=== PATIENT | male | born 1945 | race Caucasian/White ===

== ENCOUNTER 2025-01-31 09:23 | Outpatient (AMB) | payer MEDICARE, OTHER, SELFPAY ==
--- NOTE | 2025-01-31 09:24 | A.OFFVIS_ITS ---
Intake Visit Reasons: renal lesion Intake Note: Patient is present for RENAL LESION Urology Medication:NONE Antibiotic Allergy:NONE Blood Thinner:NONE Application Dba Required: No Allergies No Known Allergies Allergy (Verified 01/31/25 09:25) Results AMB Urinalysis, Automated UA Leukoctes 0 Paul/uL Last Edit by JACQUE Stovall on 01/31/25 09:41 UA Nitrite Negative Last Edit by JACQUE Stovall on 01/31/25 09:41 UA Urobilinogen 0.2 mg/dL Last Edit by JACQUE Stovall on 01/31/25 09:4 1 UA Protein 15 mg/dL Last Edit by JACQUE Stovall on 01/31/25 09:41 UA pH 6.0 Last Edit by JACQUE Stovall on 01/31/25 09:41 UA Blood 0 Timothy/uL Last Edit by JACQUE Stovall on 01/31/25 09:41 UA Specific [place] 1.025 Last Edit by JACQUE Stovall on 01/31/25 09: 41 UA Ketone Positive Last Edit by JACQUE Stovall on 01/31/25 09:41 UA Bilirubin 0 mg/dL Last Edit by JACQUE Stovall on 01/31/25 09:41 UA Glucose 0 mg/dL Last Edit by JACQUE Stovall on 01/31/25 09:41 Results Reviewed Results Reviewed: Laboratory Last Values Urine pH (Auto) 6.0 01/31/25 09:40 Specific [place] (Auto) 1.025 01/31/25 09:40 Urine Protein (Auto) 15 mg/dL 01/31/25 09:40 Glucose (UA)(Auto) 0 mg/dL 01/31/25 09:40 Urine Ketones (Auto) Positive 01/31/25 09:40 Urine Blood (Auto) 0 Timothy/uL 01/31/25 09:40 Urine Nitrite (Auto) Negative 01/31/25 09:40 Urine Bilirubin (Auto) 0 mg/dL 01/31/25 09:40 Urine Urobilinogen (Auto) 0.2 mg/dL 01/31/25 09:40 Leukocyte Esterase (Auto) 0 Paul/uL 01/31/25 09:40 Assessment & Plan Assessment & Plan Orders: Orders AMB Urinalysis Automated Today Z13.9 - Encounter for screening, unspecified Coding
--- OUTSIDE RECORDS SUMMARY | 2025-01-31 10:03 | XMS_ITS | Data Portability ---
Author Organization [facility], , [facility], OFFICE Address [address] [place] [address] Care Team Providers Care Home Mission Worker Name Role Phone BESSY WELLINGTON OTHER MELISSA MATHEWS OTHER [facility] OTHER LEVI MONTANO Primary Care Provider JESÚS SLAUGHTER Urologist Assessment Encounter Date Assessment Date Assessment LastModified by Organization Details LastModified Time 12/01/2024 12/01/2024 We reviewed your chronic medical conditions and updated your plan for management. Please review instructions below. We have discussed your personal goals and discussed how to reach your goals. Please reach out to us via the Portal or phone if you have questions about your chronic conditions or if you or your caregivers require assistance in meeting your goals. Please visit our website Worlds for more patient resources. As part of your care plan, we will help coordinate your ongoing medical needs, arrange for durable medical equipment, renew prescriptions and necessary prior authorizations, facilitate getting referrals and collaborating with specialist, referrals for VNA services. [email or web address] Not available 11/28/2024 15:43:28 Plan of Treatment Reminders Order Date Submit Date Provider Last Modified By Organization Details Last Modified Time Details Appointments LAB Follow- Up 2024 08:10A M [facility] Lab Not available Not available Not available Follow Up, 15 2024 10:15A M Diana Scott PA-C Not available Not available Not available Compreh ensive Eye Exam, 20 Min 2025 10:40A M Merline Bourgeois, OD Not available Not available Not available Lab CBC 2024 [facility], [address] [place] [address], [id number], 12/14/2024 16:54:30 CMP, serum or plasma 2024 025 [facility], [address] [place] [address], [id number], 12/15/2024 14:55:15 lipase, serum or plasma 2024 025 [facility], [address] [place] [address], [id number], 12/15/2024 14:55:16 erythro cyte sedimen tation rate by westerg edu method 2024 025 [facility], [address] [place] [address], [id number], 12/15/2024 09:50:06 C-react kim protein , quantit ative, serum or plasma 2024 [facility], [address] [place] [address], [id number], 12/15/2024 14:55:17 Referral None recorde d. Procedures None recorde d. Surgeries None recorde d. Imaging MRI, kidney, w/wo contras t - renal protoco l, pls compare with April [address]24 CT scan with recomme ndation s; please note abd exam today LUQ with non tender firm mass approx 3 cm, difficu lt to ascerta in due to body habitus , hx of intermi ttent chronic LUQ pain x 1 year. Hx of T2DM. 2024 025 [facility] [address], [place], [address], 01/16/2025 12:42:46 XR, abdomen - LUQ random pain x 1 year, I palpate d a hard mass approx 2 cm non tender pls verify? rib? 2024 025 [facility] ([facility]), [address], [place], [address], 01/11/2025 17:59:22 Medication Orders metform in ER 500 mg tablet, extende d release 24 hr 2024 025 [email or web address] [facility], [facility], [place], [address], 01/25/2025 10:27:43 Ozempic 0.25 mg or 0.5 mg (2 mg/3 mL) subcuta neous pen injecto r 2024 025 [facility], [facility], [address], 12/14/2024 14:35:20 metform in ER 1,000 mg tablet, extende d release 24hr (osmoti c) 2024 025 [email or web address] [facility], [facility], [place], [address], 12/01/2024 15:27:58 Patient TargetsNo targets recorded. Patient Instructions Encounter Date Encounter Id Patient Instructions Last Modified By Organization Details Last Modified Time 12/14/2024 [id number] -Nonfasting labwork today -Go down to the ozempic 0.5mg weekly -Keep taking the metformin at the 500mg for now -Follow-up in 2 weeks with LS or TR -Ask your insurance if they pay for a continuous glucose monitor (CGM) for patients on the meds that you're taking (and ask which one) Not available 12/14/2024 15:22:03 01/25/2025 [id number] -Check with pharmacist, I believe you can use two of the 0.5mg ozempic doses together to make 1mg and that is okay -Take ozempic 1mg weekly -Reduce the metformin back to 500mg twice daily (can cut the short acting in half for now, use that up, but when you call for a new script, let US know, don't go through the pharmacy) - the goal is for changing to ER to avoid the diarrhea and nausea Not available 01/25/2025 10:30:27 Reason for Referral None Reported. Results Created Date Observation Date Name Description Value Unit Range Abnormal Flag Note LastModifiedBy Organization Detail LastModifiedTime 11/24/19 25 11/24/2024 HGB A1C hemoglobin A1C 7.7 % 4.8-6. 0 high Goal: <7% in Patie nts with Diabe tommy An A1c betwe en 5.7-6 .4% is ident ified as pre-d iabet es and sugge sts risk for progr essio n to diabe tommy Two a1c value s of 6.5% or highe r is consi stent with a diagn osis of diabe tommy but may need furth er confi rmati on Not Available [address], [address], 11/24/2024 15:39:43 11/24/19 25 11/24/2024 HGB A1C estimated average glucose 174.3 mg/dL Not Available [address], [address], 11/24/2024 15:39:43 11/24/19 25 11/24/2024 BASIC METAB OLIC PANEL glucose 138 mg/dL 70-100 high Not Available [address], [address], 11/24/2024 16:05:35 11/24/19 25 11/24/2024 BASIC METAB OLIC PANEL BUN 14 mg/dL 7-18 Not Available [address], [address], 11/24/2024 16:05:35 11/24/19 25 11/24/2024 BASIC METAB OLIC PANEL creatinine 1.0 mg/dL 0.8-1. 3 Not Available [address], [address], 11/24/2024 16:05:35 11/24/19 25 11/24/2024 BASIC METAB OLIC PANEL B/C 14.0 ratio Not Available [address], [address], 11/24/2024 16:05:35 11/24/19 25 11/24/2024 BASIC METAB OLIC PANEL GFR >=60ML /MIN mL/mi n normal >=60m L/min - Arabella l or midly reduc ed <60mL /min- Decre ased kidne y funct ion <15mL /min - Kidne y failu re [facility] calcu lates estim ated Glome rular Filtr ation Rate (eGFR ) using the Chron ic Kidne y Disea se Epide miolo gy Colla borat ion (CKD- EPI) Equat ion (Mariel leong et. al 2020) as recom hallie d by the Natio nal Kidne y Found ation . eGFR is based on age, serum creat inine , and sex. CKD-E PI does not calcu late eGFR by race, does not apply to child edu (age <18 years ), and shoul d not be used in pregn stephanie. Not Available [address], [address], 11/24/2024 16:05:35 11/24/19 25 11/24/2024 BASIC METAB OLIC PANEL sodium 140 mmol/ L 136-14 5 Not Available [address], [address], 11/24/2024 16:05:35 11/24/19 25 11/24/2024 BASIC METAB OLIC PANEL potassium 4.6 mmol/ L 3.5-5. 1 Not Available [address], [address], 11/24/2024 16:05:35 11/24/19 25 11/24/2024 BASIC METAB OLIC PANEL chloride 104 mmol/ L 96-107 Not Available [address], [address], 11/24/2024 16:05:35 11/24/19 25 11/24/2024 BASIC METAB OLIC PANEL anion gap 8.4 5.0-15 .0 Not Available [address], [address], 11/24/2024 16:05:35 11/24/19 25 11/24/2024 BASIC METAB OLIC PANEL CO2 28 mmol/ L 21-32 Not Available [address], [address], 11/24/2024 16:05:35 11/24/19 25 11/24/2024 BASIC METAB OLIC PANEL calcium 8.8 mg/dL 8.5-10 .3 Not Available [address], [address], 11/24/2024 16:05:35 12/15/19 25 12/14/2024 CBC WBC 7.17 K/? ? ?L 4.23-9 .07 Not Available [address], [address], 12/14/2024 16:54:30 12/15/19 25 12/14/2024 CBC RBC 4.82 M/? ? ?L 4.63-6 .08 Not Available [address], [address], 12/14/2024 16:54:30 12/15/19 25 12/14/2024 CBC HGB 14.5 g/dL 13.7-1 7.5 Not Available [address], [address], 12/14/2024 16:54:30 12/15/19 25 12/14/2024 CBC HCT 43.4 % 40.1-5 1.0 Not Available [address], [address], 12/14/2024 16:54:30 12/15/19 25 12/14/2024 CBC MCV 90.0 fL 79.0-9 2.2 Not Available [address], [address], 12/14/2024 16:54:30 12/15/19 25 12/14/2024 CBC MCH 30.1 pg 25.7-3 2.2 Not Available [address], [address], 12/14/2024 16:54:30 12/15/19 25 12/14/2024 CBC MCHC 33.4 g/dL 32.3-3 6.5 Not Available [address], [address], 12/14/2024 16:54:30 12/15/19 25 12/14/2024 CBC plt 241 K/? ? ?L 163-33 7 Not Available [address], [address], 12/14/2024 16:54:30 12/15/19 25 12/14/2024 CBC MPV 9.2 fL 9.4-12 .4 low Not Available [address], [address], 12/14/2024 16:54:30 12/15/19 25 12/14/2024 CBC neut% 65.9 % 34.0-6 7.9 Not Available [address], [address], 12/14/2024 16:54:30 12/15/19 25 12/14/2024 CBC neut# 4.72 1.78-5 .38 Not Available [address], [address], 12/14/2024 16:54:30 12/15/19 25 12/14/2024 CBC lymph % 23.3 % 21.8-5 3.1 Not Available [address], [address], 12/14/2024 16:54:30 12/15/19 25 12/14/2024 CBC lymph # 1.67 K/? ? ?L 1.32-3 .57 Not Available [address], [address], 12/14/2024 16:54:30 12/15/19 25 12/14/2024 CBC mono% 8.6 % 5.3-12 .2 Not Available [address], [address], 12/14/2024 16:54:30 12/15/19 25 12/14/2024 CBC mono# 0.62 0.30-0 .82 Not Available [address], [address], 12/14/2024 16:54:30 12/15/19 25 12/14/2024 CBC eo% 1.5 % 0.8-7. 0 Not Available [address], [address], 12/14/2024 16:54:30 12/15/19 25 12/14/2024 CBC eo# 0.11 0.04-0 .54 Not Available [address], [address], 12/14/2024 16:54:30 12/15/19 25 12/14/2024 CBC baso% 0.4 % 0.2-1. 2 Not Available [address], [address], 12/14/2024 16:54:30 12/15/19 25 12/14/2024 CBC baso# 0.03 0.00-0 .08 Not Available [address], [address], 12/14/2024 16:54:30 12/15/19 25 12/14/2024 CBC RDW-CV 12.1 % 11.6-1 4.4 Not Available [address], [address], 12/14/2024 16:54:30 12/15/19 25 12/14/2024 CBC Ig% 0.300 % 0.000- 1.500 Ig % >0.5 Indic ates possi ble Left Shift Not Available [address], [address], 12/14/2024 16:54:30 12/15/19 25 12/14/2024 CBC Ig# 0.020 0.000- 0.093 Not Available [address], [address], 12/14/2024 16:54:30 12/15/19 25 12/14/2024 CBC NRBC% 0.0 % 0.0-0. 2 Not Available [address], [address], 12/14/2024 16:54:30 12/15/19 25 12/14/2024 CBC NRBC# 0.000 0.000- 0.012 Not Available [address], [address], 12/14/2024 16:54:30 12/15/19 25 12/15/2024 ESR sed rate 5.0 0.0-20 .0 Not Available [address], [address], 12/15/2024 09:50:06 12/15/19 25 12/15/2024 COMP. METAB OLIC PANEL glucose 162 mg/dL 70-100 high Not Available [address], [address], 12/15/2024 14:55:15 12/15/19 25 12/15/2024 COMP. METAB OLIC PANEL BUN 18 mg/dL 7-18 Not Available [address], [address], 12/15/2024 14:55:15 12/15/19 25 12/15/2024 COMP. METAB OLIC PANEL creatinine 1.0 mg/dL 0.8-1. 3 Not Available [address], [address], 12/15/2024 14:55:15 12/15/19 25 12/15/2024 COMP. METAB OLIC PANEL B/C 18.0 ratio Not Available [address], [address], 12/15/2024 14:55:15 12/15/19 25 12/15/2024 COMP. METAB OLIC PANEL GFR >=60ML /MIN mL/mi n normal >=60m L/min - Arabella l or midly reduc ed <60mL /min- Decre ased kidne y funct ion <15mL /min - Kidne y failu re [facility] calcu lates estim ated Glome rular Filtr ation Rate (eGFR ) using the Chron ic Kidne y Disea se Epide miolo gy Colla borat ion (CKD- EPI) Equat ion (Mariel r et. al 2020) as recom hallie d by the Natio nal Kidne y Found ation . eGFR is based on age, serum creat inine , and sex. CKD-E PI does not calcu late eGFR by race, does not apply to child edu (age <18 years ), and shoul d not be used in pregn stephanie. Not Available [address], [address], 12/15/2024 14:55:15 12/15/19 25 12/15/2024 COMP. METAB OLIC PANEL sodium 140 mmol/ L 136-14 5 Not Available [address], [address], 12/15/2024 14:55:15 12/15/19 25 12/15/2024 COMP. METAB OLIC PANEL potassium 4.2 mmol/ L 3.5-5. 1 Not Available [address], [address], 12/15/2024 14:55:15 12/15/19 25 12/15/2024 COMP. METAB OLIC PANEL chloride 101 mmol/ L 96-107 Not Available [address], [address], 12/15/2024 14:55:15 12/15/19 25 12/15/2024 COMP. METAB OLIC PANEL anion gap 13.9 5.0-15 .0 Not Available [address], [address], 12/15/2024 14:55:15 12/15/19 25 12/15/2024 COMP. METAB OLIC PANEL CO2 25 mmol/ L 21-32 Not Available [address], [address], 12/15/2024 14:55:15 12/15/19 25 12/15/2024 COMP. METAB OLIC PANEL calcium 9.4 mg/dL 8.5-10 .3 Not Available [address], [address], 12/15/2024 14:55:15 12/15/19 25 12/15/2024 COMP. METAB OLIC PANEL total protein 7.9 g/dL 6.4-8. 2 Not Available [address], [address], 12/15/2024 14:55:15 12/15/19 25 12/15/2024 COMP. METAB OLIC PANEL albumin 4.3 g/dL 3.4-5. 0 Not Available [address], [address], 12/15/2024 14:55:15 12/15/19 25 12/15/2024 COMP. METAB OLIC PANEL globulin 3.6 g/dL Not Available [address], [address], 12/15/2024 14:55:15 12/15/19 25 12/15/2024 COMP. METAB OLIC PANEL A/G 1.2 ratio 0.8-2. 0 Not Available [address], [address], 12/15/2024 14:55:15 12/15/19 25 12/15/2024 COMP. METAB OLIC PANEL total bilirubin 0.50 mg/dL 0.00-1 .00 Not Available [address], [address], 12/15/2024 14:55:15 12/15/19 25 12/15/2024 COMP. METAB OLIC PANEL AST 20 U/L 0-37 Not Available [address], [address], 12/15/2024 14:55:15 12/15/19 25 12/15/2024 COMP. METAB OLIC PANEL ALT 51 U/L 6-63 Not Available [address], [address], 12/15/2024 14:55:15 12/15/19 25 12/15/2024 COMP. METAB OLIC PANEL alk. phos. 117 U/L 50-136 Not Available [address], [address], 12/15/2024 14:55:15 12/15/19 25 12/15/2024 LIPAS E lipase 26 U/L 16-77 Not Available [address], [address], 12/15/2024 14:55:16 12/15/19 25 12/15/2024 C-SUSAN CTIVE PROTE IN (RCRP ) C-reactive protein (rcrp) 0.8 mg/dL 0.5-9. 0 Not Available [address], [address], 12/15/2024 14:55:17 01/12/20 25 01/11/2025 XR, abdom en CLINIC AL HISTOR Y: Left upper quadra nt abdomi nal pain for 1 year. 2 cm palpab le lump. TECHNI QUE: Supine view and uprigh t view of the abdome n obtain ed. COMPAR [place]: None. FINDIN GS: The intest inal gas patter n is normal , with no signs of ileus or obstru ction. No unusua l masses or calcif icatio ns are seen. The viscer al contou rs are normal ly outlin ed. There is no eviden ce of free air or fluid in the perito luis alberto cavity or retrop eriton eum. The bony struct ures are intact . There is an unrema rkable amount of stool. IMPRES JANETT: No acute abdomi nal pathol ogy. No suspic ious abnorm alitie s seen in the left upper abdome n. Consid er a follow -up ultras ound to assess the lump. Readin g Physic sonal: Carmen Escobedo ms juan fzivana [facility] (Imaging) [address], [place], [address], 01/12/2025 18:07:15 01/24/20 25 01/22/2025 MRI, abdom en, w/wo contr ast No observ ation record ed. [address] [place], [address], 01/23/2025 14:04:35 01/24/20 25 01/22/2025 MRI abdom en (kidn eys) with and witho ut contr ast MRI ABDOME N (YNES YS) WITH AND WITHOU T CONTRA ST Referr ing clinic sonal's provid ed indica tion for this examin ation in Epic: Outsid e Radiol ogy Order Review of the Electr onic Medica l Record reveal s an additi onal histor y of: Renal lesion seen on outsid e CT scan. TECHNI QUE: Multip lanar MR imagin g of the abdome n was perfor med using T1, T2, fat satura jody, and diffus ion weight ed techni ques. Dynami c multip hase imagin g was also perfor med after admini strati on of an intrav enous gadoli nium contra st agent. COMPAR [place]: None FINDIN GS: Lower Chest: No effusi ons. Liver: Multip le scatte red subcen timete r simple hepati c cysts. No solid mass. Patent portal vein. Biliar y: Normal gallbl adder. No biliar y ductal dilata tion. Spleen : No spleno megaly or focal lesion . Pancre as: Small pancre atic head and uncina te cysts measur e up to 5 mm (for instan ce 5:24). No solid mass or pancre atic ductal dilata tion. Adrena l Glands : No nodule s. Kidney s/Uret ers: T2 hypoin tense, precon trast T1 isoint ense 29 x 26 x 29 mm right interp olar renal lesion with mild enhanc ement on delaye d postco ntrast imagin g ([id number] : 81). Simple right upper pole cyst measur es 21 mm. Subcen timete r simple left renal cyst. No hydron ephros is. 2 right renal arteri es. Patent , single right renal vein. Bowel: No dilata tion or wall thicke viktoria. Normal append ix. Perito neum/R etrope ritone um: No masses or fluid. Lymph Nodes: No lympha denopa thy. Vessel s: No abdomi nal aortic aneury sm. Bones/ Soft Tissue s: No focal marrow replac ing lesion s. IMPRES JANETT: 1. 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 No eviden ce of upper abdomi nal metast ases. Urolog ic evalua tion recomm ended. 2. 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 Recomm end follow -up MRI in 2 years to ensure stabil ity. A clinic ally signif icant result was initia jody on 025 1:10 PM, Mess e [place] [id number] 7. Electr onical ly Signed by: Benson carias on 025 1:11 PM Interp reted by: Benson Vanegas MD Signed by: Benson Vanegas MD 5 Final result MRI KIDNEY S WWO ORDER STATES : Patien t states lesion seen on kidney from outsid e CT scan. ( Report in media manage r) Left abdome n pain. [id number] Open Import ant - Epic INTERF BENNETT [id number] ABNORM AL FINDIN GS ON DIAGNO STIC IMAGIN G OF OTHER ABDOMI NAL REGION S,INCL UDING RETROP ERITON EUM R93.5 LEVI GARCIA DARCI N YUE LARSON [facility] [address] [place] [address], [address], 01/24/2025 12:42:31 Result Notes None recorded. Procedures Surgical History Date Name Laterality Status Provider Name and Address Organization Details Recorded Time 4 Juancarlos - Colonoscopy completed Chu Bauer MD [address] [place] [address], [phone], [facility] 06/08/2024 10:40:59 4 Juancarlos - Upper Endoscopy completed Chu Bauer MD [address] [place] [address], [phone], [facility] 06/08/2024 10:38:54 Imaging Results Imaging Date Name Status LastModified by Organiz ation Details LastModified Time 01/11/2025 [facility] [address], [place], [address], 01/12/2025 18:07:15 01/22/2025 MRI, abdomen, w/wo contrast completed [address], [address], 01/23/2025 14:04:35 01/22/2025 MRI abdomen (kidneys) with and without contrast completed [facility] [address] [place] [address], [address], 01/24/2025 12:42:31 Procedure Notes None recorded. Medical Equipment None Reported. Allergies No known drug allergies Medications Name Sig Start Date Stop Date Status Note LastModified by Organization Details LastModified Time drug name is not available active Not Available Not Available No t Available compound drug 01/10 completed Not Available Not Available Not Available cyclobenz aprine 10 mg tablet Take 1 tablet 3 times a day by oral route as needed for spasm. 07/16 completed Not Available Not Available Not Available amoxicill in 500 mg capsule 01/16 completed Not Available Not Available Not Available atorvasta tin 40 mg tablet TAKE 1 TABLET DAILY active Not Available Not Available No t Available atorvasta tin 80 mg tablet TAKE 1 TABLET BY MOUTH EVERY EVENING 08/17 completed 1/2 tab daily Not Available Not Available Not Available doxycycli ne hyclate 100 mg capsule Take 1 capsule twice a day by oral route as directed for 14 days. 06/11 completed Not Available Not Available Not Available Microlet Vaculance Device 2006 active Take 1.00 ea as directed Not Available Not Available Not Available FreeStyle Lancets 28 gauge USE TWICE DAILY DIRECTED FOR MONITORI NG GLUCOSE 11/21 completed pt not using 05/15/24 mp Not Available Not Available Not Available fluoroura cil 5 % topical cream 02/27 completed Not Available Not Available Not Available prochlorp erazine maleate 10 mg tablet active Not Available Not Available Not Available triamcino lone acetonide 0.1 % topical cream APPLY A THIN LAYER TO THE AFFECTED AREA(S) BY TOPICAL ROUTE 2 TIMES PER DAY 06/11 completed Not Available Not Available Not Available lancets USE DIRECTED 3 TIMES ADAY AND NEEDED 10/03 completed Not Available Not Available Not Available citalopra m 20 mg tablet TAKE 1 TABLET ONCE DAILY active Not Available Not Available No t Available hydrocort isone-bennett tic acid 1 %-2 % ear drops INSTILL 2 DROPS INTO AFFECTED EAR(S) BY OTIC ROUTE 4 TIMES PER DAY 05/15 completed 03/16/24 yr pt not using// 03/21/24 yr pt not using Not Available Not Available Not Available ciproflox acin 0.3 % eye drops PUT 1 DROP EVERY 2 HOURS WHILE AWAKE FOR 2 DAYS THEN EVERY 4 HOURS WHILE AWAKE FOR NEXT 5 DAYS active Not Available Not Available No t Available pantopraz ole 40 mg tablet,de layed release 06/05 completed Not Available Not Available Not Available metformin 1,000 mg tablet TAKE 1 TABLET TWICE A DAY 01/25 completed Not Available Not Available Not Available lidocaine 5 % topical patch APPLY 1 PATCH BY TOPICAL ROUTE ONCE DAILY (MAY WEAR UP TO 12HOURS. ) 01/11 completed Not Available Not Available Not Available omeprazol e 20 mg capsule,d elayed release TAKE 1 CAPSULE DAILY active Not Available Not Available No t Available diclofena c sodium 50 mg tablet,de layed release TAKE 1 TABLET BY MOUTH TWICE A DAY WITH MEALS FOR 10 DAYS active Not Available Not Available No t Available ibuprofen 600 mg tablet 01/26 completed PRN Not Available Not Available Not Available albuterol sulfate HFA 90 mcg/actua tion aerosol inhaler Inhale 2 puffs every 4 hours by inhalati on route. 10/03 completed PRN Not Available Not Available Not Available metformin ER 500 mg tablet,ex tended release 24 hr TAKE 2 TABLETS BY MOUTH EVERY DAY 2024 active Not Available Not Available Not Avai lable Adult Low Dose Aspirin 81 mg tablet,de layed release 02/14 completed 1 qd po Not Available Not Available Not Available ciclopiro x 0.77 % topical cream 02/27 completed Not Available Not Available Not Available Alcohol Prep Pads USE TWICE DAILY DIRECTED FOR MONITORI NG GLUCOSE 01/26 completed Not Available Not Available Not Available metformin ER 1,000 mg tablet,ex tended release 24hr (osmotic) Take 1 tablet twice a day by oral route for 90 days. 2024 active Not Available Not Available Not Avai lable BD Ultra-Fin e Mini Pen Needle 31 gauge x 3/16 USE DIRECTED W OZEMPIC active Not Available Not Available No t Available multivita min 2008 active 1 qd po Not Available Not Available Not Avai lable metformin ER 500 mg 24 hr tablet,ex tended release (gastric retention ) Take 2 tablets by mouth every day 08/17 completed Not Available Not Available Not Available peg 3350-elec trolytes 236 gram-22.7 4 gram-6.74 gram-5.86 gram solution active Not Available Not Available Not Available FreeStyle Lite Meter kit USE TWICE DAILY DIRECTED FOR MONITORI NG GLUCOSE 11/21 completed pt not using 05/15/24 mp Not Available Not Available Not Available FreeStyle Lite Strips USE TWICE DAILY DIRECTED FOR MONITORI NG GLUCOSE, DX CODE E11.9 11/21 completed pt not using 8 mp Not Available Not Available Not Available cholecalc iferol (vitamin D3) 1,250 mcg (50,000 unit) capsule Take 1 capsule every week by oral route. 07/16 completed Not Available Not Available Not Available Vitamin D3 50 mcg (2,000 unit) tablet Take 1 tablet every day by oral route for 30 days. 2013 active Not Available Not Available Not Avai labaddy [facility] Custom Lipo-Max cream active Not Available Not Available Not Available OneTouch Delica Lancets 30 gauge 01/16 completed Not Available Not Available Not Available Readi-Cat 2 2 % (w/v) oral suspensio n DRINK 1 BOTTLE 6 HRS PRIOR AND 2ND BOTTLE 1 1/2 HRS PRIOR 05/15 completed Not Available Not Available Not Available Ozempic 0.25 mg or 0.5 mg (2 mg/1.5 mL) subcutane ous pen injector INJECT 0.50 MG EVERY WEEK BY SUBCUTAN EOUS ROUTE FOR 28 DAYS. 01/01 completed Not Available Not Available Not Available COVID-19 test specimen collectio n TEST DIRECTED 05/08 completed Not Available Not Available Not Available Ozempic 1 mg/dose (4 mg/3 mL) subcutane ous pen injector INJECT 1MG SUBCUTAN EOUSLY WEEKLY (EVERY 7 DAYS) active 0.5mg/do se 01/11/25 Not Available Not Available Not Available Ozempic 0.25 mg or 0.5 mg (2 mg/3 mL) subcutane ous pen injector INJECT 0.5MG SUBCUTAN EOUSLYON CE WEEKLY (EVERY 7 DAYS) 12/14 completed Not Available Not Available Not Available Vitals None Recorded Social History Question Answer Notes LastModified by Organization Details LastModified Time Do You Have An Advance Directive? Yes Information not available 08/20/2011 What Is Your Level Of Alcohol Consumption? None Information not available 06/05/2016 What Is Your Level Of Caffeine Consumption? None Information not available 10/02/2013 How Much Tobacco Do You Chew? None [id number] Information not available 08/20/2011 Are You Currently Employed? No Information not available 05/08/2022 What Type Of Diet Are You Following? REGULAR [id number] Information not available 08/20/2011 Which Illicit Or Recreational Drugs Have You Used? None Information not available 08/20/2011 Do You Or Have You Ever Used E-cigarettes Or Vape? Never Used Electronic Cigarettes Information not available 02/28/2020 Education 4 Year College Information not available 09/29/2012 What Is The Highest Grade Or Level Of School You Have Completed Or The Highest Degree You Have Received? 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 No Information not available 05/10/2023 How Many Days In The Past Year Have You Had A Heavy Drinking Consumption (4+ Female, 5+ Male)? 0 [email or web address] Information not available 10/03/2014 Are There Any Guns Present In Your Home? No Information not available 05/10/2023 Do You Use Insect Repellent Routinely? No Information not available 05/08/2022 Live Alone Or With Others? With Others Information not available 08/20/2011 Patient Has Health Care Proxy Signed And In Chart Yes Information not available 07/18/2019 CCM Consent Discussion 02/25/2024 [email or web address] Information not available 03/02/2024 Marital Status Marla 2020 Grandchildren Information not available 01/22/2021 Mosquito Repellent Used Routinely Yes Information not available 01/22/2021 What Was The Date Of Your Most Recent Tobacco Screening? 01/11/2025 [email or web address] Information not available 01/11/2025 How Many Children Do You Have? 3 Information not available 09/29/2012 What Is Your Relationship Status? Information not available 05/08/2022 Do You Use Your Seat Belt Or Car Seat Routinely? Yes Information not available 05/08/2022 Seat Belts Used Routinely Yes Information not available 10/02/2013 Are You Sexually Active? No [id number] Information not available 08/20/2011 Smoke Alarm In Home Yes Information not available 10/02/2013 Do You Have Smoke And Carbon Monoxide Detectors In Your Home? Yes Information not available 05/08/2022 Are You Passively Exposed To Smoke? No In Childhood Information not available 05/08/2022 Do You Or Have You Ever Used Smokeless Tobacco? Never Used Smokeless Tobacco Information not available 02/28/2020 How Much Tobacco Do You Smoke? No Information not available 11/13/2020 What Types Of Sporting Activities Do You Participate In? Painting Information not available 09/29/2012 General Stress Level Low Information not available 09/29/2012 Do You Use Any Illicit Or Recreational Drugs? No Information not available 05/08/2022 Do You Use Sunscreen Routinely? No Stays Out Of The Sun Information not available 05/08/2022 How Many Years Have You Smoked Tobacco? 0 Information not available 11/13/2020 Do You Or Have You Ever Used Any Other Forms Of Tobacco Or Nicotine? No Information not available 05/08/2022 Sex: Unknown Functional Status Question Answer Note LastModified by Organizat ion Details LastModified Time What is your exercise level? Occasional walks daily but slower pace- walks dog Information not available 05/10/2023 Mental Status None recorded. Family History Relationship Description Onset Age of this Age Resolved Age Notes LastModified by Organization Details LastModified Time Father Heart disease 62 [email or web address] Not available 2015 13:09:00 Paternal Uncle Heart disease 48 [email or web address] Not available 2015 13:09:00 Notes:Psychiatric: Family hi story is remarkable for alcoholism. Medical History Condition Response Kidney Stones Y Depression Y Colon Polyps Y Obesity Y Hyperlipidemia Y Chronic Back Pain Y Diabetes Type II Y GERD Y Past Encounters Encounter ID Performer Location Encounter Start Date Encounter Closed Date Diagnosis/Indication Diagnosis SNOMED-CT Code Diagnosis ICD10 Code Diagnosis Note [id number] [facility], OFFICE [address] [facility] [place] [id number] 1 08/16/2000 13:15:00 10/24/2008 02:02:29 [id number] [facility] OFF[facility] [place] [id number] 1 01/17/2001 10:00:00 10/24/2008 02:02:29 [id number] [facility], OFFICE [address] [facility] [place] [id number] 1 07/18/2001 08:45:00 10/24/2008 02:02:29 [id number] [facility], OFFICE [address], [place] [id number] 1 10/20/2001 18:00:00 10/24/2008 02:02:29 [id number] [facility], OFFICE [address], [place] [id number] 1 12/26/2001 13:45:00 10/24/2008 02:02:29 [id number] LAB - [facility] [address], [place] [id number] 1 01/17/2002 08:30:00 10/24/2008 02:02:29 [id number] [facility], OFFICE [address], [place] [id number] 1 01/26/2002 08:30:00 10/24/2008 02:02:29 [id number] LAB - [facility] [address], [place] [id number] 1 02/07/2002 14:00:00 10/24/2008 02:02:29 [id number] LAB - [facility] [address], [place] [id number] 1 03/13/2002 07:15:56 10/24/2008 02:02:29 [id number] [facility], OFFICE [address], [place] [id number] 1 03/20/2002 08:30:00 10/24/2008 02:02:29 [id number] LAB - [facility] [address], [place] [id number] 1 05/08/2002 07:10:21 10/24/2008 02:02:29 [id number] [facility], OFFICE [address], [place] [id number] 1 05/15/2002 08:25:02 10/24/2008 02:02:29 [id number] LAB - [facility] [address], [place] [id number] 1 08/07/2002 07:19:25 10/24/2008 02:02:29 [id number] [facility], OFFICE [address], [place] [id number] 1 08/07/2002 09:11:31 10/24/2008 02:02:29 [id number] [facility], OFFICE [address] [place] [id number] 1 08/14/2002 13:02:02 10/24/2008 02:02:29 [id number] LAB - [facility] [place] [id number] 1 09/11/2002 15:04:25 10/24/2008 02:02:29 [id number] [facility], OFFICE [address] [place] [id number] 1 09/11/2002 13:44:28 10/24/2008 02:02:29 [id number] LAB - [facility] [place] [id number] 1 09/11/2002 00:00:00 10/24/2008 02:02:29 [id number] LAB - [facility] [place] [id number] 1 12/07/2002 06:58:21 10/24/2008 02:02:29 [id number] [facility], OFFICE [address] [place] [id number] 1 02/01/2003 09:30:48 10/24/2008 02:02:29 [id number] LAB - [facility] [place] [id number] 1 04/27/2003 06:56:37 10/24/2008 02:02:29 [id number] [facility], OFFICE [address] [place] [id number] 1 05/07/2003 07:55:11 10/24/2008 02:02:29 [id number] LAB - [facility] [place] [id number] 1 07/27/2003 06:54:22 07/27/2003 14:23:51 [id number] [facility], OFFICE [address] [place] [id number] 1 08/03/2003 08:01:22 08/03/2003 09:40:04 [id number] [facility], OFFICE [address] [place] [id number] 1 08/07/2003 15:57:01 08/08/2003 09:53:56 [id number] LAB - [facility] [place] [id number] 1 10/11/2003 07:00:02 10/12/2003 08:01:40 [id number] [facility], OFFICE [address] [place] [id number] 1 10/18/2003 09:14:50 10/18/2003 14:27:49 [id number] [facility], OFFICE [address], [place] [id number] 1 12/31/2003 09:38:52 12/31/2003 10:58:57 [id number] LAB - [facility] [place] [place] [id number] 1 12/31/2003 10:10:24 01/01/2004 09:29:01 [id number] [facility], OFFICE [address] [place], [place] [id number] 1 01/17/2004 09:18:18 01/17/2004 13:46:36 [id number] [facility], OFFICE [address] [place] [id number] 1 02/08/2004 08:30:27 02/08/2004 09:52:32 [id number] LAB - [facility] [place] [id number] 1 02/21/2004 14:22:11 02/22/2004 07:52:14 [id number] LAB - [facility] [place] [id number] 1 05/05/2004 10:11:38 05/05/2004 10:11:42 [id number] LAB - [facility] [place] [id number] 1 07/14/2004 10:21:08 07/14/2004 10:21:12 [id number] [facility], OFFICE [address] [place] [id number] 1 07/29/2004 09:01:58 07/29/2004 13:01:24 [id number] LAB - [facility] [place] [id number] 1 07/29/2004 09:45:37 07/29/2004 09:45:52 [id number] LAB - [facility] [place] [id number] 1 10/22/2004 08:37:09 10/22/2004 08:37:13 [id number] [facility], OFFICE [address] [place] [id number] 1 10/31/2004 14:18:26 11/01/2004 12:34:46 [id number] [facility], OFFICE [address] [place] [id number] 1 01/07/2005 12:56:38 01/07/2005 14:56:17 [id number] LAB - [facility] [place] [id number] 1 02/19/2005 09:59:48 02/19/2005 09:59:53 [id number] [facility], OFFICE [address] [place] [id number] 1 02/24/2005 08:14:49 02/24/2005 11:43:25 [id number] Eye Care, [facility] [place] [id number] 1 03/16/2005 14:54:46 03/16/2005 16:28:34 [id number] Eye Care, [facility] [place] [id number] 1 04/20/2005 15:07:56 04/20/2005 15:56:26 [id number] LAB - [facility] [place] [id number] 1 05/13/2005 11:48:36 05/13/2005 11:48:41 [id number] [facility], OFFICE [address] [place] [id number] 1 05/25/2005 08:15:49 10/24/2008 02:02:29 [id number] [facility], OFFICE [address] [place] [id number] 1 08/03/2005 14:05:43 10/24/2008 02:02:29 [id number] LAB - [facility] [place] [id number] 1 08/10/2005 08:27:41 08/10/2005 08:27:46 [id number] [facility], OFFICE [address] [place] [id number] 1 08/14/2005 08:01:18 08/14/2005 11:18:33 [id number] LAB - [facility] [place] [id number] 1 08/14/2005 10:15:09 08/14/2005 10:15:33 [id number] LAB - [facility] [place], [place] [id number] 1 11/09/2005 08:53:16 11/09/2005 08:53:22 [id number] [facility], OFFICE [address] [place], [place] [id number] 1 11/13/2005 08:14:29 11/13/2005 13:24:15 [id number] LAB - [facility] [place], [place] [id number] 1 02/19/2006 07:58:23 02/19/2006 07:58:26 [id number] [facility], OFFICE [address] [place], [place] [id number] 1 03/08/2006 10:30:45 03/08/2006 15:00:31 [id number] [facility], [facility] [place], [place] [id number] 1 03/15/2006 08:25:46 10/24/2008 02:02:29 [id number] LAB - [facility] [place], [place] [id number] 1 03/16/2006 14:14:12 03/16/2006 14:14:52 [id number] [facility], OFFICE [address] [place], [place] [id number] 1 04/09/2006 11:01:57 04/09/2006 14:43:08 [id number] [facility] - [facility] [place], [place] [id number] 1 05/25/2006 08:35:40 05/25/2006 08:35:44 [id number] [facility], OFFICE [address], [place] [id number] 1 05/31/2006 08:05:29 05/31/2006 11:38:54 [id number] [facility], OFFICE [address], [place] [id number] 1 07/09/2006 12:52:23 07/09/2006 16:00:07 [id number] [facility] - [facility] [place] [id number] 1 08/09/2006 08:16:51 08/09/2006 08:16:55 [id number] [facility], OFFICE [address] [place], [place] [id number] 1 08/16/2006 07:59:52 08/16/2006 15:15:40 [id number] LAB - [facility] [place] [id number] 1 11/15/2006 08:06:49 11/15/2006 08:06:53 [id number] [facility], OFFICE [address] [place] [id number] 1 11/19/2006 07:58:18 11/19/2006 15:16:13 [id number] [facility], OFFICE [address] [place] [id number] 1 01/14/2007 08:57:41 01/14/2007 12:01:18 [id number] LAB - [facility] [place] [id number] 1 02/18/2007 08:14:59 02/18/2007 08:15:07 [id number] [facility], [place] [id number] 1 02/23/2007 08:03:52 02/23/2007 09:01:34 [id number] Eye Care, [facility] [place] [id number] 1 03/21/2007 09:46:54 10/24/2008 02:02:29 [id number] [facility], [place] [id number] 1 04/20/2007 13:08:31 04/21/2007 17:26:42 [id number] Physical Therapy, [facility] [place] [id number] 1 04/21/2007 08:56:34 04/22/2007 17:39:44 [id number] Physical Therapy, [facility] [place] [id number] 1 04/28/2007 11:30:02 04/28/2007 14:43:56 [id number] Physical Therapy, [facility] [place] [id number] 1 05/02/2007 08:22:22 05/03/2007 13:18:04 [id number] Physical Therapy, [facility] [place] [id number] 1 05/04/2007 08:52:11 05/04/2007 11:27:59 [id number] LAB - [facility] [place] [id number] 1 05/02/2007 08:17:55 05/02/2007 08:18:00 [id number] [facility] [id number] 1 05/06/2007 07:58:11 05/07/2007 12:53:46 [id number] Physical Therapy, [facility] [place] [id number] 1 05/10/2007 09:00:12 05/10/2007 10:05:44 [id number] Physical Therapy, [facility] [place] [id number] 1 05/12/2007 08:25:08 05/12/2007 10:27:20 [id number] Physical Therapy, [facility] [place] [id number] 1 05/24/2007 09:30:21 05/24/2007 11:17:52 [id number] Physical Therapy, [facility] [place] [id number] 1 05/26/2007 09:26:59 05/26/2007 11:52:50 [id number] Physical Therapy, [facility] [place] [id number] 1 06/02/2007 08:31:27 06/02/2007 14:16:23 [id number] Physical Therapy, [facility] [place] [id number] 1 06/13/2007 09:26:48 06/13/2007 11:31:15 [id number] Physical Therapy, [facility] [place] [id number] 1 06/20/2007 13:50:19 06/23/2007 14:08:32 [id number] LAB - [facility] [place] [id number] 1 09/28/2007 08:45:47 09/28/2007 08:45:55 [id number] [facility], [place] [id number] 1 10/05/2007 08:03:06 10/24/2008 02:02:29 [id number] Physical Therapy, [facility] [place] [id number] 1 10/10/2007 08:29:42 10/10/2007 14:34:33 [id number] Physical Therapy, [facility] [place] [id number] 1 10/19/2007 10:22:15 10/19/2007 11:55:47 [id number] Physical Therapy, [facility] [place] [id number] 1 10/24/2007 08:27:24 10/24/2007 11:51:04 [id number] Physical Therapy, [facility] [place] [id number] 1 10/26/2007 08:56:52 10/26/2007 11:55:51 [id number] Physical Therapy, [facility] [place] [id number] 1 11/02/2007 08:18:05 11/02/2007 10:26:11 [id number] Physical Therapy, [facility] [place] [id number] 1 10/31/2007 08:25:02 10/31/2007 10:36:58 [id number] Physical Therapy, [facility] [place] [id number] 1 11/07/2007 09:02:21 11/07/2007 11:50:31 [id number] Physical Therapy, [facility] [place] [id number] 1 11/17/2007 11:06:31 11/17/2007 13:38:06 [id number] Physical Therapy, [facility] [place] [id number] 1 11/23/2007 08:27:20 11/23/2007 12:07:01 [id number] [facility], OFFICE [address] [place] [id number] 1 12/14/2007 15:50:19 10/24/2008 02:02:29 [id number] [facility], OFFICE [address] [place] [id number] 1 12/29/2007 14:58:18 10/24/2008 02:02:29 [id number] LAB - [facility] [place] [id number] 1 03/12/2008 08:35:45 03/12/2008 08:35:48 [id number] Eye Care, [facility] [place] [id number] 1 05/22/2008 16:56:25 05/24/2008 08:34:45 [id number] [facility], OFFICE [place], [place] [id number] 1 06/14/2008 08:27:25 10/24/2008 02:02:29 [id number] [facility], OFFICE [address] [place], [place] [id number] 1 08/01/2008 13:59:07 10/24/2008 02:02:29 [id number] [facility], OFFICE [address] [place], [place] [id number] 1 12/28/2008 09:00:14 12/31/2008 10:13:51 [id number] [facility], OFFICE [place], [place] [id number] 1 06/17/2009 07:58:54 06/18/2009 09:05:02 [id number] LAB - [facility] [place] [id number] 1 12/24/2008 07:47:24 12/24/2008 07:47:26 [id number] Eye Care, [facility] [place], [place] [id number] 1 06/03/2009 16:40:17 06/04/2009 10:31:58 [id number] LAB - [facility] [place], [place] [id number] 1 06/12/2009 07:15:04 06/12/2009 07:15:12 [id number] [facility], OFFICE [address], [place] [id number] 1 10/09/2009 14:23:29 10/09/2009 14:36:34 [id number] [facility], OFFICE [address], [place] [id number] 1 12/27/2009 14:52:17 12/30/2009 08:13:48 [id number] [facility], OFFICE [address], [place] [id number] 1 01/20/2010 11:00:39 01/20/2010 14:11:08 [id number] Doris Rapp LPN [facility], OFFICE [address], [place] [id number] 1 03/31/2010 14:48:31 04/01/2010 09:06:01 [id number] Physical Therapy, [facility] [place], [place] [id number] 1 04/01/2010 16:16:41 04/03/2010 09:17:42 [id number] Physical Therapy, [facility] [place], [place] [id number] 1 04/03/2010 15:58:43 04/04/2010 16:43:23 [id number] [facility], OFFICE [address], [place] [id number] 1 04/04/2010 08:48:39 04/04/2010 13:27:22 [id number] [facility], OFFICE [address] [place], [place] [id number] 1 04/08/2010 08:34:12 04/08/2010 13:21:40 [id number] [facility], OFFICE [address], [place] [id number] 1 04/12/2010 10:38:49 04/14/2010 07:20:49 [id number] Physical Therapy, [facility] [place], [place] [id number] 1 04/15/2010 15:57:14 04/16/2010 14:04:23 [id number] Physical Therapy, [facility] [place], [place] [id number] 1 04/17/2010 15:50:44 04/22/2010 08:07:20 [id number] Physical Therapy, [facility] [place], [place] [id number] 1 04/21/2010 15:54:08 04/22/2010 10:42:34 [id number] Physical Therapy, [facility] [place], [place] [id number] 1 04/24/2010 15:54:08 04/25/2010 13:14:38 [id number] Physical Therapy, [facility] [place], [place] [id number] 1 04/28/2010 15:52:45 04/28/2010 17:51:18 [id number] Physical Therapy, [facility] [place], [place] [id number] 1 05/01/2010 15:50:20 05/05/2010 11:21:22 [id number] Physical Therapy, [facility] [place] [id number] 1 05/06/2010 15:51:34 05/07/2010 13:11:57 [id number] Physical Therapy, [facility] [place] [id number] 1 05/08/2010 15:48:32 05/12/2010 13:59:29 [id number] , [facility], OFFICE [place] [id number] 1 06/10/2010 14:46:19 06/11/2010 09:05:43 [id number] Radiology , [facility] [place] [id number] 1 06/10/2010 15:14:24 06/10/2010 15:44:30 [id number] [facility] [id number] 1 06/27/2010 15:00:33 06/30/2010 08:39:26 [id number] [facility] [id number] 1 12/29/2010 14:48:52 12/30/2010 08:05:16 [id number] [facility], [place] [id number] 1 04/16/2011 10:57:48 04/17/2011 07:59:40 [id number] [facility], OFFICE [place], [place] [id number] 1 07/16/2011 14:47:39 07/17/2011 07:37:06 [id number] Radiology , [facility] [place] [id number] 1 09/11/2011 07:55:02 09/15/2011 14:46:51 [id number] [facility], [place] [id number] 1 01/08/2012 14:53:43 01/11/2012 07:46:04 [id number] [facility], OFFICE [place], [place] [id number] 1 01/29/2012 09:48:29 01/29/2012 10:31:45 [id number] Doris Rapp LPN [facility], [place] [id number] 1 02/22/2012 08:52:28 02/22/2012 09:40:44 [id number] Yajaira Raya , [facility], OFFICE [address], [place] [id number] 09/12/2012 15:50:34 09/12/2012 16:03:06 [id number] Richard Jordan MD , [facility], OFFICE [address], [place] [id number] 09/29/2012 14:41:36 09/29/2012 16:32:58 [id number] , [facility], OFFICE [address], [place] [id number] 03/09/2013 14:58:11 03/10/2013 07:39:13 [id number] [facility], [facility] [address], [place] [address] 03/27/2013 14:50:11 03/29/2013 08:44:01 [id number] [facility], [place] [address] [address], [place] [address] 04/03/2013 13:58:07 04/04/2013 09:01:04 [id number] Liliam Chung, PT Physical Therapy, [facility] [address], [place] [id number] 04/19/2013 15:22:00 04/20/2013 16:06:34 [id number] [facility], [facility] [address], [place] [id number] 1 05/03/2013 15:28:31 05/04/2013 09:21:11 [id number] [facility], [facility] [address], [place] [id number] 1 05/10/2013 16:11:36 05/11/2013 08:27:12 [id number] [facility], [facility] [address], [place] [id number] 1 05/24/2013 15:25:54 05/25/2013 16:13:49 [id number] [facility], [facility] [address], [place] [id number] 1 05/30/2013 13:48:32 05/31/2013 11:01:34 [id number] Est[facility], [facility] [address], [place] [address] 1 06/07/2013 14:23:25 06/08/2013 09:47:50 [id number] [facility], [facility] [address], [place] [id number] 1 06/14/2013 15:18:38 06/16/2013 15:20:31 [id number] [facility], [facility] [place] [place], [place] [id number] 1 06/21/2013 15:26:02 06/23/2013 10:34:52 [id number] Est[facility], [facility] [place] [place], [place] [id number] 1 06/28/2013 15:20:20 06/29/2013 11:05:08 [id number] [facility], [place] [address] [address], [place] [id number] 1 07/05/2013 15:28:03 07/06/2013 15:42:10 [id number] Deann Martinez MA , [facility], OFFICE [address], [place] [id number] 07/15/2013 09:12:33 07/15/2013 10:47:04 [id number] Blanche ALBERT, [facility], OFFICE [address], [place] [id number] 1 09/08/2013 14:49:19 09/11/2013 09:34:25 [id number] Doris Rapp LPN , [facility], OFFICE [address], [place] [address] 1 10/02/2013 07:58:07 10/02/2013 08:57:15 [id number] Tom ALBERT, [facility], OFFICE [address], [place] [id number] 1 10/21/2013 11:07:53 10/21/2013 12:54:24 [id number] Richard Jordan MD , [facility], OFFICE [address], [place] [id number] 1 01/10/2014 09:54:13 01/10/2014 10:25:37 [id number] Luke Boris [facility], OFFICE [address] [facility] [place] [address] 03/30/2014 14:51:06 03/30/2014 15:52:33 [id number] Richard Jordan MD , [facility], OFFICE [address] [address] 05/21/2014 12:56:07 05/21/2014 15:55:51 [id number] Blanche Kelsi , [facility], OFFICE [address] [place] [address] 06/05/2014 08:54:25 06/05/2014 09:33:01 [id number] Doris Rapp LPN [facility], OFFICE [address] [facility] [place] [address] 07/30/2014 07:16:43 07/30/2014 16:49:43 [id number] Richard Jordan MD [facility], OFFICE [address] [place] [address] [place] [address] 08/24/2014 15:51:39 08/24/2014 16:35:16 [id number] Judith Cardenas [facility], OFFICE [address] [place] [address] [place] [address] 10/03/2014 14:46:51 10/03/2014 15:40:45 [id number] Jose A Hill MA , [facility], OFFICE [address] [facility] [place] [address] 11/06/2014 13:08:09 11/06/2014 13:40:46 [id number] Sujata Najera NP , [facility], OFFICE [address] [place] [address] [place] [address] 1 11/20/2014 14:40:49 11/21/2014 09:10:28 [id number] ASP, [facility] [address] [place] [address] 03/11/2015 08:35:08 03/11/2015 13:40:07 [id number] Yohana Keita [facility], OFFICE [address] [place] [address] [place] [address] 03/29/2015 14:34:44 03/29/2015 15:41:04 [id number] [facility], OFFICE [address] [place], [place] [address] 04/01/2015 13:32:44 04/01/2015 14:14:43 [id number] Janki Austinace [facility], OFFICE [address] [place] [place], [place] [address] 07/09/2015 08:00:06 07/09/2015 08:39:54 [id number] Levi Zepeda NP , [facility], OFFICE [address] [place] [place], [place] [address] 10/08/2015 14:21:45 10/08/2015 14:52:17 [id number] Tucker Kapoor, OD [facility], [place] [address] [place], [place] [address] 11/07/2015 07:50:44 11/07/2015 15:14:20 [id number] Mone Liu [facility], OFFICE [address] [place], [place] [address] 12/05/2015 12:43:25 12/05/2015 13:22:58 [id number] Richard Jordan MD , [facility], OFFICE [address] [place] [place], [place] [address] 06/05/2016 07:48:52 06/05/2016 09:02:37 [id number] Daniel Lazo OD Eye Care, [place] [address] [place], [place] [address] 06/15/2016 12:47:21 06/15/2016 15:30:59 [id number] Daniel Lazo OD Eye Care, [place] [address] [place], [place] [address] 07/31/2016 10:39:31 07/31/2016 11:29:49 [id number] Richard Jordan MD , [facility], OFFICE [facility] [place], [place] [address] 08/17/2016 15:45:40 08/17/2016 16:37:01 [id number] Tucker Kapoor, OD Eye Care, [place] [address] [place], [place] [address] 1 11/26/2016 10:41:33 11/26/2016 11:30:54 [id number] Richard Jordan MD , [facility], OFFICE [address] [facility] [place] [address] 12/04/2016 07:53:22 12/04/2016 08:39:30 [id number] Richard Jordan MD , [facility], OFFICE [address] [facility] [place] [address] 12/30/2016 15:37:16 12/30/2016 16:06:14 [id number] Jeremy Silva, MSN, CURRENCY COUNTER-C , [facility], OFFICE [address] [facility] [place] [address] 03/23/2017 09:47:19 03/23/2017 10:31:12 [id number] Levi Zepeda NP , [facility], OFFICE [address] [facility] [place] [address] 05/14/2017 08:57:12 05/14/2017 10:59:07 [id number] Richard Jordan MD , [facility], OFFICE [address] [facility] [place] [address] 06/11/2017 09:00:35 06/11/2017 10:07:42 [id number] Richard Jordan MD , [facility], OFFICE [address] [facility] [place] [address] 11/04/2017 09:18:48 11/04/2017 10:08:40 [id number] Sixto Musa PA-C , [facility], OFFICE [address] [place] [address] 11/24/2017 08:47:06 11/24/2017 10:21:31 [id number] Kimberly Saucedo, OD Eye Care, [facility] [address] [place] [address] 11/29/2017 10:50:24 11/29/2017 13:03:47 [id number] Richard Jordan MD , [facility], OFFICE [address] [facility] [place] [address] 12/16/2017 13:01:51 12/16/2017 13:44:43 [id number] Richard Jordan MD , [facility], OFFICE [address] [facility] [place] [address] 06/17/2018 09:33:47 06/17/2018 10:34:46 [id number] Kimberly Saucedo, OD Eye Care, [facility] [address] [place] [address] 12/06/2018 13:50:54 12/06/2018 15:04:49 [id number] Melonie Medina CURRENCY COUNTER-BC FP, [facility], OFFICE [address] [place] [address] 12/30/2018 09:36:37 12/30/2018 10:31:20 [id number] Melonie Medina CURRENCY COUNTER-BC FP, [facility], OFFICE [address] [place] [address] 02/14/2019 08:50:44 02/15/2019 09:35:21 [id number] Melonie Medina CURRENCY COUNTER-BC FP, [facility], OFFICE [address] [place] [address] 02/20/2019 16:49:36 02/20/2019 17:27:34 [id number] ADRIÁN SosaP-BC FP, [facility], OFFICE [address] [place] [address] 03/24/2019 09:22:25 03/24/2019 10:12:09 [id number] Melonie Medina CURRENCY COUNTER-BC FP, [facility], OFFICE [address] [place] [address] 07/18/2019 10:17:46 07/18/2019 11:17:43 [id number] Melonie Medina CURRENCY COUNTER-BC FP, [facility], OFFICE [address] [place] [address] 01/22/2021 08:28:02 01/28/2021 15:48:20 [id number] Melonie Medina CURRENCY COUNTER-BC FP, [facility], OFFICE [address] [place] [address] 02/28/2020 09:15:05 03/05/2020 15:39:08 [id number] Melonie Medina CURRENCY COUNTER-BC FP, [facility], OFFICE [address] [place] [address] 04/08/2020 15:44:56 04/16/2020 13:32:18 [id number] Melonie Medina CURRENCY COUNTER-BC FP, [facility], OFFICE [address] [place] [address] 07/17/2020 10:02:40 07/24/2020 11:57:01 [id number] Merline Bourgeois, OD Eye Care, [address] [address] 07/23/2020 12:52:48 07/24/2020 08:43:53 [id number] Robyn Posada RN [facility], [facility] [address] [place] [address] 10/31/2020 13:14:49 11/01/2020 07:52:36 [id number] Kylie Sahu NP FP, [facility], OFFICE [address] [place] [address] 11/13/2020 11:19:39 11/14/2020 15:43:14 [id number] PATO Reid, [facility], OFFICE [address] [place] [address] 11/13/2020 16:33:02 11/14/2020 15:50:33 [id number] DO ROOSEVELT Rodas, [facility], OFFICE [address] [place] [address] 01/16/2021 14:01:38 01/17/2021 12:19:02 [id number] MILDRED Sosa, [facility], OFFICE [address] [place] [address] 04/17/2021 11:17:57 04/17/2021 11:56:00 [id number] MILDRED Sosa, [facility], OFFICE [address] [place] [address] 05/16/2021 10:02:26 05/16/2021 10:58:36 [id number] MILDRED Sosa, [facility], OFFICE [address] [place] [address] 06/16/2021 10:04:06 06/16/2021 10:30:42 [id number] Merline Bourgeois, OD Eye Care, [address] [place] [address] 08/22/2021 10:42:26 08/22/2021 11:56:37 [id number] EDDIE SosaBC ROOSEVELT, [facility], OFFICE [address] [place] [address] 10/22/2021 11:24:43 10/28/2021 14:30:12 [id number] Sadia Lyle LPN FP, [facility], OFFICE [address] [place] [address] 11/05/2021 10:45:15 11/07/2021 15:21:50 [id number] MIA Sosa-BC [place], [facility], OFFICE [address] [place] [address] 05/08/2022 11:32:08 05/08/2022 14:46:56 [id number] MIA Sosa-BC [place], [facility], OFFICE [address] [place] [address] 06/05/2022 13:36:26 06/05/2022 14:53:28 [id number] MIA Sosa-BC [place], [facility], OFFICE [address] [place] [address] 6 06/29/2022 11:07:55 06/29/2022 17:41:43 [id number] MIA Sosa-BC [place], [facility], OFFICE [address] [place] [address] 09/30/2022 09:51:51 09/30/2022 10:40:49 [id number] Merline Bourgeois, Eye Care, [address] [place] [address] 10/06/2022 10:53:50 10/08/2022 08:57:29 [id number] MIA Sosa-BC [place], [facility], OFFICE [address] [place] [address] 01/01/2023 10:54:02 01/01/2023 15:11:42 [id number] Melonie Medina CURRENCY COUNTER-BC [place], [facility], OFFICE [address] [place] [address] 04/02/2023 09:55:44 04/02/2023 16:14:21 [id number] ADRIÁN SosaP-BC FP, [facility], OFFICE [address] [place] [address] 05/10/2023 10:36:28 05/10/2023 11:28:55 [id number] Melonie Hair Adam, CURRENCY COUNTER-BC FP, [facility], OFFICE [address] [place] [address] 06/23/2023 09:47:49 06/23/2023 10:31:22 [id number] Tram Dowling, RD, LDN Nutrition -[facility] [address] [place] [address] 08/03/2023 14:16:18 08/03/2023 20:31:48 [id number] Merline Bourgeois, OD Eye Care, [address] [address] 10/07/2023 10:46:10 10/20/2023 11:37:05 [id number] MIA العلي FP, [facility], OFFICE [address] [place] [address] 12/14/2023 10:52:44 12/14/2023 11:33:13 [id number] Breanna Cruz DNP, FNP-BC FP, [facility], OFFICE [address] [place] [address] 01/27/2024 10:56:12 01/27/2024 12:04:53 [id number] WILMER VERDE NP FP, [facility], OFFICE [address] [place] [address] 02/18/2024 09:59:15 02/18/2024 12:37:46 [id number] MIA العلي FP, [facility], OFFICE [address] [place] [address] 02/25/2024 13:16:38 02/25/2024 14:07:02 [id number] Breanna Cruz DNP, FNP-BC FP, [facility], OFFICE [address] [place] [address] 03/16/2024 10:46:45 03/16/2024 11:55:46 [id number] Breanna Cruz DNP, FNP-BC FP, [facility], OFFICE [address] [place] [address], [place] [address] 03/21/2024 13:44:55 03/21/2024 15:47:56 [id number] MIA العلي FP, [facility], OFFICE [address] [place] [address], [place] [address] 03/29/2024 13:34:52 03/29/2024 17:22:50 [id number] MIA العلي FP, [facility], OFFICE [address] [place] [address], [place] [address] 05/15/2024 14:30:27 05/15/2024 17:24:34 [id number] Vale Michelle RN Endoscopy , [address] [address] 06/08/2024 09:25:30 06/08/2024 12:38:10 [id number] MIA العلي , [facility], OFFICE [address] [place] [address], [place] [address] 08/07/2024 11:15:30 08/07/2024 14:22:48 [id number] Lian Hayes NP FP, [facility], OFFICE [address] [place] [address] 09/26/2024 08:57:22 09/26/2024 09:49:06 [id number] Merline Bourgeois, Eye Care, [address] [address] 10/10/2024 10:39:33 10/10/2024 11:57:18 [id number] Lamont Savage MD FP, [facility], OFFICE [address] [place] [address] 11/21/2024 15:34:20 11/21/2024 16:20:28 [id number] Diana Scott PA-C FP, [facility], OFFICE [address] [place] [address], [place] [address] 12/01/2024 09:52:59 12/01/2024 13:20:38 [id number] Arti Menendez FP, [facility], OFFICE [address] [place] [address] 12/14/2024 14:22:20 12/14/2024 15:37:21 [id number] Blanche Dolan , [facility], OFFICE [address] [place] [address] 01/11/2025 15:15:30 01/11/2025 16:49:22 [id number] Arti Menendez , [facility], OFFICE [address] [place] [address] 01/25/2025 09:50:18 01/25/2025 10:39:20 [id number] Merline Bourgeois, Eye Care, [address] [address] 01/25/2025 08:12:10 01/25/2025 09:54:18 Health Concerns Section Related Observation LastModified by Organization Detai ls LastModified Time None Recorded Concern Status LastModified by Organization Details LastModified Time None Recorded Advance Directives Directive Y: Payers Encounter Date Sequence Insurance Name Policy Number Policy Amaral Covered Member ID Amaral Member ID Guarantor Name 12/01/2024 1 [place] [facility] Matti King [id number] 1 Matti King 12/01/2024 2 UNICARE - SENIOR SERVICES PLAN F (MEDICARE SUPPLEMENT) [id number] Jessica Perez Joby [id number] Matti King 12/14/2024 1 [place] [facility] Matti King [id number] 1 Matti King 12/14/2024 2 [employer]ICARE - SENIOR SERVICES PLAN F (MEDICARE SUPPLEMENT) [id number] Jessica Perez Joby [id number] Matti King 01/11/2025 1 [place] [facility] Matti King [id number] 1 Matti King 01/11/2025 2 [employer]ICARE - SENIOR SERVICES PLAN F (MEDICARE SUPPLEMENT) [id number] Jessica Perez Joby [id number] Matti King 01/25/2025 1 [place] [facility] Matti King [id number] 1 Matti King 01/25/2025 2 UNICARE - SENIOR SERVICES PLAN F (MEDICARE SUPPLEMENT) [id number] Jessica M Joby [id number] Matti King 01/25/2025 1 [place] [facility] Matti King [id number] 1 Matti King 01/25/2025 2 UNICARE - SENIOR SERVICES PLAN F (MEDICARE SUPPLEMENT) [id number] Jessica Hemphill [id number] Matti King
== END 2025-01-31 10:27 | disposition home or self-care (01) ==
PROVIDERS: PCP Family Medicine; Visit Provider Urology
DX: Z13.9 Encounter for screening, unspecified (principal)

== ENCOUNTER → 2025-01-31 09:23 | Outpatient (BNVA) | payer MEDICARE, OTHER, SELFPAY | PROVIDERS: PCP Family Medicine; Visit Provider Urology | DX: C64.9 Malignant neoplasm of unspecified kidney, except renal pelvis (principal) | CPT/HCPCS: 81003; 99202 ==

== ENCOUNTER 2025-04-10 11:24 | Day surgery (SDC) | payer MEDICARE, SELFPAY ==
--- OUTSIDE RECORDS SUMMARY | 2025-03-30 12:36 | XMS_ITS | Data Portability ---
Author Organization [facility], [employer] Address [address] 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 Medications per patient: Protonix 10 mg daily, escitalopram 20 mg daily, Lipitor 40 mg daily, metformin 500 mg daily, multivitamin, baby aspirin, Ozempic We discussed that the tremor was not dangerous. We discussed that this is not Parkinson's disease: There is no rest tremor, bradykinesia, rigidity, or parkinsonian gait to suggest Parkinson's disease. REM behavior sleep disorder is a strong predictor of a parkinsonian syndrome of dopaminergic depletion (the common ones being Parkinson's disease, less, Lewy body disease) but there is a caveat: The emergence of other clinical symptoms such a disease may be delayed by a decade, two decades or more. The current presentation does not suggest a parkinsonian syndrome. No other symptoms may emerge for the rest of his life. I hope this is true, but I cannot guarantee. He understood. REM behavior sleep disorder itself can cause morbidity. We briefly discussed that there are treatments, and initial relatively benign treatment is melatonin. She he or his be sufficiently bothered by his symptomatology while he is sleeping, I offer a follow-up should he desire to discuss this in more detail and consider starting melatonin. He understands. Of note, sleep apnea is associated with restless leg syndrome but not with REM behavior sleep disorder. He has seen a fleeting shadow once or twice a year in recent times. He reports this when I ask about hallucinations. I ask about hallucination for evidence of potential Lewy body disease. Such a fleeting shadow can be an illusion, not a hallucination. The frequency is rare. This evidence is nonspecific and I am not concerned about Lewy body disease. He understands. We discussed that medications exist that often have excellent symptomatic benefit without undue side effects for essential tremor (e.g. Inderal SR, primidone, clonazepam, zonisamide). These would only be indicated should tremor disturb professional, recreational, or social activities in the future. Tremor sufficiently mild so that it does not significantly bother daily activities. Medication is not indicated. We discussed that tremor progression is uncertain. It may stay the same for many years. It may worsen at some point so that symptomatic medication is desired. I suggested a return for follow up in such a case arises. Certain medications may prominently exacerbate essential tremor. No such medications are being taken. We discussed that essential tremor can get worse with anxiety, physical exertion, fatigue, systemic illness. The tremor will return to baseline with resolution of these conditions. Anxiety is among the established diagnosis for our patient. He likes to paint. I suggested that he arranges time for painting when he can put issues in the outside world that cause anxiety aside, when he has not recently had significant physical exertion, and when he is not tired. Caffeine can exacerbate tremor. There is no contraindication for an occasional cup of coffee or caffeinated drink more generally as long as any tremor that falls is not bothersome. Essential tremor may also vary without apparent reason. This is not a cause for alarm. Hyperthyroidism may exacerbate tremor. I defer to primary care on this matter. PLAN Please ask primary care to check thyroid function with your next standard set of blood work assays. Follow up as needed for worsening tremor, worsening acting out dreams, hallucinations, any emerging tremor when your arms are at rest, and even stiffness or awkwardness of using your arms or legs unrelated to your current tremor. [email or web address] Not available 07/25/2024 16:23:18 Plan of Treatment Reminders Order Date Submit Date Provider Last Modified By Organization Details Last Modified Time Details Appointments None record ed. Lab None record ed. Referral None record ed. Procedures None record ed. Surgeries None record ed. Imaging None record ed. Medication Orders None record ed. Patient TargetsNo targets recorded. Patient Instructions Encounter Date Encounter Id Patient Instructions Last Modified By Organization Details Last Modified Time 07/25/2024 [id number] Discussion acros s issues of diagnoses and management and same day associated chart review and management greater than 50% greater than 90 minutes [email or web address] Not available 07/25/2024 16:23:27 Reason for Referral None Reported. Medical Equipment None Reported. Allergies No known drug allergies Medications Name Sig Start Date Stop Date Status Note LastModified by Organization Details LastModified Time atorvastatin 40 mg tablet TAKE 1 TABLET DAILY active Not Available Not Available No t Available citalopram 20 mg tablet active Not Available Not Available No t Available omeprazole 20 mg capsule,delaye d release active Not Available Not Available No t Available metformin ER 500 mg tablet,extende d release 24 hr active Not Available Not Available Not Available aspirin active Not Available Not Avail able Not Available pantoprazole active Not Available Not Available Not Available multivitamin active Not Available Not Available Not Available Readi-Cat 2 2 % (w/v) oral suspension DRINK 1 BOTTLE 6 HRS PRIOR AND 2ND BOTTLE 1 1/2 HRS PRIOR active Not Available Not Available No t Available Ozempic 1 mg/dose (4 mg/3 mL) subcutaneous pen injector active Not Available Not Available Not Available Vitals Date Recorded Body height Body mass index (BMI) Body weight Respiratory rate Provider Name and Address Organization Details Last Updated DateTime 07/25/2024 181.61 cm 32.2 kg/m2 859786.61 g 12 /min Cherelle Amb[facility] 07/25/2024 14:54:11 Social History Question Answer Notes LastModified by Organizat ion Details LastModified Time Tobacco Smoking Status [facility] 15:00:10 What Is Your Level Of Caffeine Consumption? None Information not available 07/25/2024 What Is The Highest Grade Or Level Of School You Have Completed Or The Highest Degree You Have Received? [id number] Information not available 07/25/2024 Which Of Your Hands Is Dominant? Right Information not available 07/25/2024 Sex: Unknown Functional Status Question Answer Note LastModified by Organization D etails LastModified Time What is your level of alcohol consumption? None Information not available 07/25/2024 Mental Status None recorded. Family History Nothing Reported. Medical History Condition Response Claustrophobia N Head Trauma/Injury N Hospitalizations N High Blood Pressure or Hypertension N Thyroid Problems N Depression N Brain Tumors N Lung Disease N COPD or emphysema N Encephalitis N PTSD N Vitamin B12 deficiency N Heart Attack ([place]) N Spine Problems N Obstructive Sleep Apnea N Alcoholism N Diabetes Y Autoimmune disease N Bleeding Disorder N Arthritis N Cerebral Palsy N Tuberculosis N Developmental Problems N Neck Problems N Cancer N Back Problems N Stroke N Asthma N Heartburn, acid reflux, GERD Y Vitamin D Deficiency Y Epilepsy/Seizures N Bipolar Disorder N Sleep Disorder N Aneurysm N Hepatitis N Liver Disease N Heart Disease N Fibromyalgia N Headaches Y High Cholesterol or Hyperlipidemia Y Osteoporosis N Kidney Disease N Past Encounters Encounter ID Performer Location Encounter Start Date Encounter Closed Date Diagnosis/Indication Diagnosis SNOMED-CT Code Diagnosis ICD10 Code Diagnosis Note [id number] Johnsno Hernandez MD [facility] [address] [place] [address] [place] [address] 07/25/2024 14:44:15 07/25/2024 16:27:50 Essential tremor 734610315 G25.0 REM sleep behavior disorder 461916360 G47.52 Health Concerns Section Related Observation LastModified by Organization Detai ls LastModified Time None Recorded Concern Status LastModified by Organization Details LastModified Time None Recorded Advance Directives Directive None Recorded Payers Insurance Date Sequence Insurance Name Policy Number Policy Amaral Covered Member ID Amaral Member ID Guarantor Name 08/01/2024 1 MEDICARE B-[place]: [facility] Matti King [id number] 1 Matti King 09/05/2024 2 [facility] (MEDICARE SUPPLEMENT) [id number] Matti King [id number] Matti King 09/06/2024 1 [facility] F (MEDICARE SUPPLEMENT) [id number] Matti King [id number] Matti King 09/08/2024 2 UNSPECIFIED REMIT PAYOR Matti King Notes Date Note Type Note Provider Name and Address Organization Details Recorded Time 07/25/2024 text/html Matti King presents for initial neurology consultation for assessment and management of right hand tremor. Past history type 2 diabetes, hyperlipidemia, sleep apnea, vitamin D deficiency, migraine with aura, GERD, low back pain, depression, He is right-handed.--He is accompanied by his , Jessica Enamorado.>>>>>>>>> >>>July 25, 2024 presenting symptomotology:In recent times, his son, a physicians marketing communications assistant, brought up to the patient that his right hand was shaking when he was eating with a fork his fork was bouncing. The patient has subsequently noticed recurring examples with manual activities. For instance, when using a screwdriver with his right hand, he finds it effortful fitting the screwdriver tip into the screw. Once it is in the screw, the rest of the task is not a problem.He has noticed no tremor with his hands at rest. His has noticed such tremor and emphasizes that the right hand only shakes when he is doing something.He has no constipation. He has good sense of smell. He has sleep apnea but does not wear CPAP. His notes that she often notices that his limbs thrash when he is sleeping as if he is dreaming. He also talks or mumbles or yells in such situations. A long time ago, he once fell out of bed.He reports no hallucinations. In recent times, once or twice per year, he sees a fleeting shadows in the periphery of his vision. At the time, he thinks it might be the cat. Johnson Hernandez MD [address] [place] [address] [place], [phone], [facility] 07/25/2024 16:23:48
[2025-04-05 08:53] VITALS: BMI 33.4
--- NOTE | 2025-04-05 10:51 | HO.ANESPROP2 ---
Documented by User: Lisbeth Park NP 04/30/25 14:40 HPI - Anesthesia Eval Consult details Narrative: 79yo M for Kidney Cryo-Ablation Hold 4 Hrs, 04/10/25 Anesthesia Pre-Procedure Meds Is the patient on any of the following meds?: GLP1/DPP4 PMFSH Active Problems Active Problems: All Active Problems Renal cancer (Acute) Past Medical History Medical History Left inguinal hernia Abnormal stress test Tremor Back pain GERD (gastroesophageal reflux disease) Allergic rhinitis HTN (hypertension) Nuclear sclerotic cataract Migraine Sleep apnea Depression Obesity Mixed hyperlipidemia Vitamin D deficiency Diabetes Benign neoplasm of large intestine Surgical History Surgical History H/O colonoscopy Social History Social History Are you a primary care nurse rn to a significant other at home: No Do you presently have visiting nurse or other home services: No Patient Tobacco Use Status: Never used Tobacco Meds Allergies Allergy/AdvReac Type Severity Reaction Status Date / Time No Known Allergies Allergy Verified 04/18/25 14:30 Home Medications ?Medication ?Instructions ?Recorded ?Confirmed ?Last Taken ?Type atorvastatin 40 mg tablet 40 mg PO QPM 01/31/25 04/05/25 Unknown History citalopram 20 mg tablet 20 mg PO QPM 01/31/25 04/05/25 Unknown History metformin 1,000 mg tablet 1,000 mg PO BID 01/31/25 04/05/25 Unknown History omeprazole 20 mg capsule,delayed 20 mg PO QPM 01/31/25 04/05/25 Unknown History release cholecalciferol (vitamin D3) 50 50 mcg PO QPM 04/05/25 04/05/25 Unknown History mcg (2,000 unit) capsule (Vitamin D3) multivitamin 1 tab PO QPM 04/05/25 04/05/25 Unknown History semaglutide 1 mg/dose (4 mg/3 mL) 1 mg subcut QWEEK 04/05/25 04/05/25 Unknown History subcutaneous pen injector (Ozempic) Exam Height,Weight and Vital Signs: Height 5 ft 11.5 in Weight 110.223 kg Narrative Narrative: Nuc Stress 04/2024 LVEF 75% Myocardial perfusion images demonstrate no evidence of ischemia or infarct ECHO 2023 per cardiac note (report unavailabe during chart review): LVEF 70% with nml PASP and borderline LAE without any signif valve disease Assessment and Plan Assessment Anesthesia Assessment: Chart Reviewed Documented by User: Clark Tucker MD 05/01/25 16:55 PMF Past Medical History Medical History Left inguinal hernia Abnormal stress test Tremor Back pain GERD (gastroesophageal reflux disease) Allergic rhinitis HTN (hypertension) Nuclear sclerotic cataract Migraine Sleep apnea Depression Obesity Mixed hyperlipidemia Vitamin D deficiency Diabetes Benign neoplasm of large intestine Family History Family history of problems with anesthesia: No Surgical History Surgical History H/O colonoscopy History of Problems with Anesthesia: No Social History Social History Are you a primary care nurse rn to a significant other at home: No Do you presently have visiting nurse or other home services: No Patient Tobacco Use Status: Never used Tobacco Meds Allergies Allergy/AdvReac Type Severity Reaction Status Date / Time No Known Allergies Allergy Verified 04/18/25 14:30 Home Medications ?Medication ?Instructions ?Recorded ?Confirmed ?Last Taken ?Type atorvastatin 40 mg tablet 40 mg PO QPM 01/31/25 04/05/25 Unknown History citalopram 20 mg tablet 20 mg PO QPM 01/31/25 04/05/25 Unknown History metformin 1,000 mg tablet 1,000 mg PO BID 01/31/25 04/05/25 Unknown History omeprazole 20 mg capsule,delayed 20 mg PO QPM 01/31/25 04/05/25 Unknown History release cholecalciferol (vitamin D3) 50 50 mcg PO QPM 04/05/25 04/05/25 Unknown History mcg (2,000 unit) capsule (Vitamin D3) multivitamin 1 tab PO QPM 04/05/25 04/05/25 Unknown History semaglutide 1 mg/dose (4 mg/3 mL) 1 mg subcut QWEEK 04/05/25 04/05/25 Unknown History subcutaneous pen injector (Ozempic) Assessment and Plan Assessment Anesthesia Assessment: Anesthesia Plan Discussed Final Anesthetic Review Family History of Problems with Anesthesia: No History of Problems with Anesthesia: No NPO: Yes ASA Class: III Final Preanesthetic Review: No Changes in Pt Med Stat, Meds/Allgs Chart Reviewed, Consent Obtained/Reviewed and Anes Risks/Benef Reviewed Patient Risk: Intermediate Procedure Risk: Intermediate Anesthetic Plan Anesthetic Plan: GA Disposition: Standard PACU
[2025-04-10] VITALS (13 sets, daily range): BP systolic 116–144; BP diastolic 58–75; PULSE 57–72; RESP 14–20; TEMP 36.2–36.6; O2SAT 94–99
--- NOTE | ~2025-04-10 | CT_ITS ---
CT-guided cryoablation right kidney mass COMPLICATIONS: None ESTIMATED BLOOD LOSS: < 5 ml CONTRAST: None SPECIMENS: None SEDATION: General anesthesia. Please see separately reported notes PROCEDURE NOTE: The procedure, risks, benefits, and alternatives were carefully explained to the patient and written informed consent was obtained. The patient was placed prone on the CT table. A timeout was performed. A limited CT of the abdomen was performed to localize the right renal mass and choose appropriate needle entry and trajectory. The patient was prepped and draped in usual sterile fashion. The skin and deeper soft tissues were anesthetized with lidocaine. Under CT guidance, 2 14-gauge cryoprobe's were advanced in a [id number] fashion through the right renal mass. Tissue stick mode was initiated to keep the probes in place and as such, further percutaneous access of the mass would be difficult and we therefore opted to not perform a biopsy at the time of the ablation. After confirming position with CT scan, cryoablation was performed with the 8 minute freeze followed by 8 minute active thaw and then 8 minute freeze. The cryoprobe's were removed while performing a tract ablation. Completion CT scan does not demonstrate any evidence of bleeding or other complication. The patient was stable after the procedure and was transferred to the post anesthesia care unit.
--- NOTE | ~2025-04-10 | CT_ITS ---
CT-guided cryoablation right kidney mass COMPLICATIONS: None ESTIMATED BLOOD LOSS: < 5 ml CONTRAST: None SPECIMENS: None SEDATION: General anesthesia. Please see separately reported notes PROCEDURE NOTE: The procedure, risks, benefits, and alternatives were carefully explained to the patient and written informed consent was obtained. The patient was placed prone on the CT table. A timeout was performed. A limited CT of the abdomen was performed to localize the right renal mass and choose appropriate needle entry and trajectory. The patient was prepped and draped in usual sterile fashion. The skin and deeper soft tissues were anesthetized with lidocaine. Under CT guidance, 2 14-gauge cryoprobe's were advanced in a [id number] fashion through the right renal mass. Tissue stick mode was initiated to keep the probes in place and as such, further percutaneous access of the mass would be difficult and we therefore opted to not perform a biopsy at the time of the ablation. After confirming position with CT scan, cryoablation was performed with the 8 minute freeze followed by 8 minute active thaw and then 8 minute freeze. The cryoprobe's were removed while performing a tract ablation. Completion CT scan does not demonstrate any evidence of bleeding or other complication. The patient was stable after the procedure and was transferred to the post anesthesia care unit. CT/CT Guided Cryo Ablation Renal Impression: CT-guided percutaneous cryoablation of right renal mass Electronically signed by: Johnson Liz MD 04/10/2025 03:17 PM EDT
[2025-04-10 11:57] LABS: Glucose, Whole Blood 144 mg/dL (60-115)
[2025-04-10 12:03] LABS: MANUAL DIFF FLAG NO
[2025-04-10 12:07] LABS: Hematocrit 38.0 % (42.0-52.0); Hemoglobin 13.1 g/dl (14.0-18.0); Imm Gran Abs Auto 0.02 X10*3/uL (0.00-0.03); Imm Gran Pct Auto 0.3 % (0.0-0.4); Lymphocytes Absolute Auto 1.6 X10*3/uL (1.2-4.9); Mean Corpuscular HGB Conc 34.5 g/dl (31.0-36.0); Mean Corpuscular Hemoglobin 30.5 pg (27.0-33.0); Mean Corpuscular Volume 88.6 fL (80.0-98.0); NRBC Abs Auto 0.000 X10*3/uL (0.0-0.012); NRBC Pct Auto 0.0 /100WBC (0.0-0.2); Platelet Count 224 X10*3/uL (160-400); Red Blood Count 4.29 X10*6/uL (4.60-5.80); White Blood Count 6.6 X10*3/uL (4.8-10.8)
[2025-04-10 12:15] LABS: INTERNATIONAL NORM RATIO 1.0 (0.9-1.1); Prothrombin Time 11.5 SEC (10.9-12.4)
[2025-04-10 12:18] LABS: Partial Thromboplastin Time 30.3 SEC (26.0-36.8)
[2025-04-10 12:21] LABS: Anion Gap 13 (12-20); Blood Urea Nitrogen 14 mg/dL (9-16); Calcium 8.9 mg/dL (8.4-10.2); Carbon Dioxide 25 mmol/L (22-29); Chloride 105 mmol/L (96-108); Creatinine Clr Calc Pharmacy 83.5; Estimated Glomerular Filt Rate > 60; Potassium 4.4 mmol/L (3.3-5.1); Sodium 139 mmol/L (135-145)
[2025-04-10] MEDS: Lactated Ringers 1,000 ML 100 ML IVCONT (14:00)
== END 2025-04-10 18:30 | disposition home or self-care (01) ==
PROVIDERS: Radiology Diagnostic Radiology; Student in an Organized Health Care Education/Training Program; PCP Nurse Practitioner Family; Visit Provider Urology
DX: C64.1 Malignant neoplasm of right kidney, except renal pelvis (principal); D12.6 Benign neoplasm of colon, unspecified; I10 Essential (primary) hypertension; E78.2 Mixed hyperlipidemia; E11.9 Type 2 diabetes mellitus without complications; E55.9 Vitamin D deficiency, unspecified; K40.90 Unilateral inguinal hernia, without obstruction or gangrene, not specified as recurrent; F32.A Depression, unspecified; G47.33 Obstructive sleep apnea (adult) (pediatric); R25.1 Tremor, unspecified; Z79.899 Other long term (current) drug therapy; Z79.84 Long term (current) use of oral hypoglycemic drugs; Z79.85 Long-term (current) use of injectable non-insulin antidiabetic drugs
CPT/HCPCS: 36415; 50200; 50593; 77012; 77013; 80048; 82947; 85025; 85610; 85730; C2618; J0690; J1596; J2003; J2371; J2405; J2704; J3010

== ENCOUNTER → 2025-04-10 13:31 | Outpatient (BNV) | payer MEDICARE, SELFPAY | PROVIDERS: PCP Nurse Practitioner Family; Visit Provider Student in an Organized Health Care Education/Training Program | DX: D41.01 Neoplasm of uncertain behavior of right kidney (principal) | CPT/HCPCS: 50200; 50593; 77013 ==

== ENCOUNTER 2025-04-18 14:22 | Outpatient (AMB) | payer MEDICARE, OTHER, SELFPAY ==
--- NOTE | 2025-04-18 14:29 | MHC.OFFVIS ---
Intake Visit Reasons: Renal lesion/Cryo follow up Intake Note: Patient is present for RENAL LESION/CRYO F/U Urology Medication:NONE Antibiotic Allergy:NONE Blood Thinner:NONE Electric Track Switch Maintainer Required: No Allergies No Known Allergies Allergy (Verified 04/18/25 14:30) HPI Comments Details: Matti is a pleasant male. He is a patient of . 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 Targeted cryotherapy 04/27 [facility] Medical History (Updated 04/05/25 @ 08:52 by Robyn Lynne, RN) Left inguinal hernia Abnormal stress test Tremor Back pain GERD (gastroesophageal reflux disease) Allergic rhinitis HTN (hypertension) Nuclear sclerotic cataract Migraine Sleep apnea Depression Obesity Mixed hyperlipidemia Vitamin D deficiency Diabetes Benign neoplasm of large intestine Surgical History (Updated 04/05/25 @ 08:51 by Robyn Lynne RN) H/O colonoscopy Social History Are you a primary customer care consultant to a significant other at home: No Do you presently have visiting nurse or other home services: No Patient Tobacco Use Status: Never used Tobacco Review of Systems Const Denies chills and Denies fever(s) Card Reports no additional complaints and Denies syncope Resp Denies cough GI Denies abdominal pain and Denies heartburn Reports as per HPI and Denies change in libido Neuro Denies syncope Psych Denies change in libido Endo Denies change in libido Physical Exam Const General: cooperative, healthy appearing, comfortable and no acute distress Orientation/consciousness: patient oriented x3 HEENT Face and sinus: Yes normal facial exam Mouth: moist mucous membranes Neck Neck: Yes normal visual inspection, Yes full ROM and Yes trachea midline Chest Chest palpation & inspection: normal inspection of the chest Resp Effort & Inspection: normal respiratory effort, able to speak in complete sentences and no respiratory distress GI Inspection: Yes normal to inspection Back/Spine/Pelvis Cervical Spine: normal cervical lordosis Thoracic/Lumbar Spine: thoracic and lumbar spine normal to inspection Skin General skin exam: no rashes or lesions noted Neuro General: patient oriented x3, gait normal, tone normal and moves all extremities Extrem General: Yes normal to inspection and Yes capillary refill normal Assessment & Plan Assessment & Plan (1) Renal cancer: Code(s): C64.9 - Malignant neoplasm of unspecified kidney, except renal pelvis Category: Medical Plan Six-month follow-up renal imaging Orders: Orders MR abdomen wo/w con 6 Months C64.9 - Malignant neoplasm of unspecified kidney, except renal pelvis Patient Instructions: This note is constructed using voice recognition software. While every effort has been made to ensure accuracy armored cable machine operator errors may have been included. Imaging studies, laboratory and physical exam results were discussed and reviewed in detail. No major barriers to patient understanding were identified. An opportunity to ask questions regarding the treatment plan was provided. All questions were answered. The patient expressed understanding and agreement with the above treatment plan. The patient is aware they should contact our office by phone for worsening of their current condition or the appearance of new urologic symptoms. Compliance is encouraged with any medications and followup testing that is ordered. It is a privilege to participate in the urologic care of your patient. If you have any questions or concerns regarding treatment for the above conditions, or other urologic issues, please do not hesitate to contact me. The office telephone contact is [phone]. Sincerely, Dr Gallito Nair MD, [facility] - Urology Compassionate Specialist Care for the Genitourinary System Coding Level of Care Code Est Pt Level 3 (62868) Complex EM visit Add On G2211 Diagnoses Renal cancer C64.9
--- OUTSIDE RECORDS SUMMARY | 2025-04-18 15:04 | XMS_ITS | Data Portability ---
Author Organization Formerly [facility] [employer] Address [address] [place] [address] Care Team Providers Care [employer] Agronomist Name Role Phone LEVI MONTANO Referring Provider [phone] LEVI MONTANO Primary Care Provider [phone] LEVI MONTANO Referring Provider [phone] Assessment Encounter Date Assessment Date Assessment LastModified [...] By Organization Details Last Modified Time 07/25/2024 50415 Discussion acros s issues of diagnoses and [...] Updated DateTime 07/25/2024 181.61 cm 32.2 kg/m2 483099.61 g 12 /min Cherelle [facility] 07/25/2024 14:54:11 Social History Question Answer Notes LastModified by Organizat ion Details LastModified Time Tobacco Smoking Status Never Smoker [facility]/25[facility] 15:00:10 What Is Your Level Of Caffeine Consumption? None Information not available 07/25/2024 What Is The Highest Grade Or Level Of School You Have Completed Or The Highest Degree You Have Received? 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 Health Concerns Section Related Observation LastModified by Organization Detai ls LastModified Time None Recorded Concern Status LastModified by Organization Details LastModified Time None Recorded Advance Directives Directive None Recorded Payers Insurance Date Sequence Insurance Name Policy Number Policy Amaral Covered Member ID Amaral Member ID Guarantor Name 08/01/2024 1 MEDICARE B-MD: [facility] Matti King [id number] Matti King 09/05/2024 2 [facility] (MEDICARE SUPPLEMENT) [id number] Matti King [id number] Matti King 09/06/2024 1 [facility] PLAN F (MEDICARE SUPPLEMENT) [id number] Matti King [id number] Matti King 09/08/2024 2 UNSPECIFIED REMIT PAYOR [...] symptomotology:In recent times, his son, a physicians health information assistant, brought up to the patient that [...] he thinks it might be the cat. Johnsno Hernandez MD [address] [place] [address] [place], [phone], [facility] Neurology [facility] 07/25/2024 16:23:48
== END 2025-04-18 15:16 | disposition home or self-care (01) ==
LOC: HO.HUSH 14:23
PROVIDERS: PCP Nurse Practitioner Family; Visit Provider Urology
DX: C64.9 Malignant neoplasm of unspecified kidney, except renal pelvis (principal)
CPT/HCPCS: 99213; G2211

== ENCOUNTER → 2025-04-18 14:22 | Outpatient (BNVA) | payer MEDICARE, OTHER, SELFPAY | PROVIDERS: PCP Nurse Practitioner Family; Visit Provider Urology | DX: C64.1 Malignant neoplasm of right kidney, except renal pelvis (principal) | CPT/HCPCS: 99212 ==